=== PATIENT | male | born 1965 | race Caucasian/White ===

== ENCOUNTER 2018-11-03 22:22 | Emergency (ER) | payer OTHER ==
--- OUTSIDE RECORDS SUMMARY | 2018-11-03 22:24 | XMS REPORT ---
:1965 Author [facility] Address [address] [place] [address] [address] [place] [address] Care Team Providers Name Role Phone Unavailable Unavailable Unavailable Problems This patient has no known problems. Allergies, Adverse Reactions, Alerts This patient has no known allergies or adverse reactions. Medications This patient has no known medications.
--- OUTSIDE RECORDS SUMMARY | 2018-11-03 22:24 | XMS REPORT | Summary of Care ---
:1965 Author Organization [facility] Address [address] [place] [id number] Care Team Providers Name Role Phone Jon Figueroa MD Primary Care Provider Reason for Visit Reason Comments Refill Request Encounter Details Date Type Department Care Team Description 10/01/2018 Refill [facility] Family Medicine Jon Figueroa MD Refill Request - [address] [place] [address] [place] [phone] Allergies No Known Allergiesdocumented as of this encounter (statuses as of 10/01/2018) Medications Medication Sig Dispensed Refills Start End Status Date Date blood sugar diagnostic Use as 50 Strip 5 Active (ONETOUCH ULTRA TEST) directed for 7 stripIndications: Type blood glucose 2 diabetes mellitus monitoring with complication, once a day for without long-term ICD code of current use of insulin E11.9 HYDROCHLOROTHIAZIDE TAKE 1 CAPSULE 90 capsule 3 Active 12.5 mg capsule BY MOUTH 9 DAILY. ROSUVASTATIN 10 mg TAKE 1 TABLET 90 tablet 3 Active tablet BY MOUTH 9 DAILY. FARXIGA 10 mg tablet TAKE 1 TABLET 90 tablet 1 Active BY MOUTH 9 DAILY. zolpidem 10 mg Take 1 tablet 90 tablet 1 Active tabletIndications: by mouth at 9 Insomnia, unspecified bedtime as type needed for Insomnia. levothyroxine Take 1 tablet 90 tablet 3 Active (SYNTHROID) 75 mcg by mouth every 9 tabletIndications: morning. Other specified hypothyroidism GLIMEPIRIDE 2 mg TAKE 1 TABLET 90 tablet 3 Active tabletIndications: Type BY MOUTH EVERY 9 2 diabetes mellitus DAY WITH without complication, BREAKFAST without long-term current use of insulin benzonatate (TESSALON Take 1 capsule 20 capsule 0 Active PERLES) 100 mg by mouth 3 9 capsuleIndications: (three) times Acute URI daily. albuterol 90 Inhale 2 Puffs 8.5 g 0 Active mcg/actuation every 6 (six) 9 inhalerIndications: hours as Cough, Wheezing needed for Wheezing. Inhaler,Assist Use as 1 Each 0 Active Devices,Access directed with 9 DeviIndications: Cough, albuterol Wheezing inhaler linagliptin-metformin Take 2 tablets 180 tablet 0 Active (JENTADUETO) 2.5-1,000 by mouth 9 mg Tab daily. LORATADINE 10 mg TAKE 1 TABLET 30 tablet 0 Active tabletIndications: BY MOUTH EVERY 9 Cough, Nasal congestion DAY lisdexamfetamine Take 1 capsule 90 capsule 0 Active (VYVANSE) 60 mg by mouth every 9 capsuleIndications: morning. Attention deficit disorder (ADD) without hyperactivity dulaglutide (TRULICITY) inject 0.5 mL 12 Syringe 1 Active 0.75 mg/0.5 mL PnIj under the skin 9 weekly. TRULICITY 0.75 mg/0.5 INJECT 0.5 ML 12 Syringe 1 Discontinued mL PnIj UNDER THE SKIN 9 019 WEEKLY. documented as of this encounter (statuses as of 10/01/2018) Active Problems Problem Noted Date Hyperlipidemia with target LDL less than 100 05/22/2015 Type 2 diabetes mellitus without complication 05/22/2015 Hypothyroid 05/22/2015 Essential hypertension 05/22/2015 ADD (attention deficit disorder) 05/22/2015 documented as of this encounter (statuses as of 10/01/2018) Social History Tobacco Use Types Packs/Day Years Used Date Never Smoker Smokeless Tobacco: Never Used Alcohol Use Drinks/Week oz/Week Comments Yes occasional Sex Assigned at Date Recorded Not on file Job Start Date Occupation Industry Not on file Not on file Not on file Travel History Travel Start Travel End No recent travel history available. documented as of this encounter Last Filed Vital Signs Not on filedocumented in this encounter Plan of Treatment Date Type Specialty Care Team Description 10/31/2018 Office Visit Family Medicine Jon Figueroa MD [address] [place] [phone] Health Maintenance Due Date Last Done Comments HEPATITIS C (HCV) SCREEN 1965 HgA1C 1966 PNEUMOCOCCAL 0-64 YEARS COMBINED SERIES (1 of 1 - 1969 PPSV23) CREATININE (SERUM) 1973 EYE EXAM 1973 LDL-C 1973 URINE MICROALBUMIN 1973 FOOT EXAM 1981 DTaP,Tdap,and Td Vaccines (1 - Tdap) 1982 COLONOSCOPY 2013 Zoster Recombinant Vaccine (SHINGRIX) (1 of 2) 2013 INFLUENZA VACCINE 11/04/2018 documented as of this encounter Results Not on filedocumented in this encounter Insurance Payer Benefit Plan / Group Subscriber ID Effective Dates Phone Address Type AETNA AETNA HMO [id number] 2014-Present HMO documented as of this encounter
--- OUTSIDE RECORDS SUMMARY | 2018-11-03 22:24 | XMS REPORT | Summary of Care ---
:[address] [facility] Address [address] [place] [address] Care Team Providers Name Role Phone Jon Figueroa MD Primary Care Provider Reason for Visit Reason Comments Refill Request Encounter Details Date Type Department Care Team Description 10/01/2018 Refill [facility] Family Medicine Jon Figueroa MD Refill Request - [address] [place] [address] [place] [phone] Allergies No Known Allergiesdocumented as of this [...] tablet 1 Active BY MOUTH 9 DAILY. TRULICITY 0.75 mg/0.5 INJECT 0.5 ML 12 Syringe 1 Active mL PnIj UNDER THE SKIN 9 WEEKLY. zolpidem 10 mg Take 1 tablet 90 [...] morning. Attention deficit disorder (ADD) without hyperactivity lisdexamfetamine Take 1 capsule 90 capsule 0 Discontinued (VYVANSE) 60 mg by mouth every 9 019 capsuleIndications: morning. Attention deficit disorder (ADD) without hyperactivity documented as of this encounter (statuses as [...] Office Visit Family Medicine Jon Figueroa MD [address] [place] [phone] Health Maintenance Due Date Last Done Comments [...] Results Not on filedocumented in this encounter Visit Diagnoses Diagnosis Attention deficit disorder (ADD) without hyperactivity documented in this encounter Insurance Payer Benefit Plan / Group Subscriber ID Effective Dates Phone Address Type AETNA AETNA O [id number] 2014-Present HMO documented as of this encounter
--- OUTSIDE RECORDS SUMMARY | 2018-11-03 22:24 | XMS REPORT | Summary of Care ---
:1965 Author Organization [facility] Address [address] [place] [address] Care Team Providers Name Role Phone Jon Figueroa MD Primary Care Provider Reason for Visit Reason Comments Refill Request Encounter Details Date Type Department Care Team Description 10/15/2018 Refill [facility] Family Medicine Jon Figueroa MD Refill Request - [address] [place] [address] [place] [phone] Allergies No Known Allergiesdocumented as of this encounter (statuses as of 10/16/2018) Medications Medication Sig Dispensed Refills Start End [...] 3 Active tablet BY MOUTH 9 DAILY. zolpidem 10 mg [...] with 9 DeviIndications: Cough, albuterol Wheezing inhaler LORATADINE 10 mg TAKE 1 TABLET 30 tablet 0 Active tabletIndications: BY MOUTH EVERY 9 Cough, Nasal congestion DAY lisdexamfetamine Take 1 capsule 90 capsule 0 Active (VYVANSE) 60 mg by mouth every 9 capsuleIndications: morning. Attention deficit disorder (ADD) without hyperactivity dulaglutide (TRULICITY) inject 0.5 mL 12 Syringe 1 Active 0.75 mg/0.5 mL PnIj under the skin 9 weekly. dapagliflozin (FARXIGA) Take 1 tablet 90 tablet 0 Active 10 mg tablet by mouth 9 daily. linagliptin-metformin Take 2 tablets 180 tablet 0 Active (JENTADUETO) 2.5-1,000 by mouth 9 mg Tab daily. linagliptin-metformin Take 2 tablets 180 tablet 0 Discontinued (JENTADUETO) 2.5-1,000 by mouth 9 019 mg Tab daily. documented as of this encounter (statuses as of 10/16/2018) Active Problems Problem Noted Date Hyperlipidemia with target LDL less than 100 05/22/2015 Type 2 diabetes mellitus without complication 05/22/2015 Hypothyroid 05/22/2015 Essential hypertension 05/22/2015 ADD (attention deficit disorder) 05/22/2015 documented as of this encounter (statuses as of 10/16/2018) Social History Tobacco Use Types Packs/Day Years [...] Office Visit Family Medicine Jon Figueroa MD [address] [place] [phone] Health Maintenance Due Date Last Done Comments [...] Dates Phone Address Type AETNA AETNA HMO [id number] 2014-Present HMO documented as of this encounter
--- OUTSIDE RECORDS SUMMARY | 2018-11-03 22:24 | XMS REPORT | Summary of Care ---
:1965 Author Organization [facility] Address [address] [place] [address] Care Team Providers Name Role Phone Jon Figueroa MD Primary Care Provider Reason for Visit Reason Comments Refill Request Encounter Details Date Type Department Care Team Description 10/04/2018 Refill [facility] Family Medicine Jon Figueroa MD Refill Request - [address] [place] [address] [place] [phone] Allergies No Known Allergiesdocumented as of this encounter (statuses as of 10/04/2018) Medications Medication Sig Dispensed Refills Start End [...] 10 mg tablet by mouth 9 daily. FARXIGA 10 mg tablet TAKE 1 TABLET 90 tablet 1 Discontinued BY MOUTH 9 019 DAILY. documented as of this encounter (statuses as of 10/04/2018) Active Problems Problem Noted Date Hyperlipidemia with target LDL less than 100 05/22/2015 Type 2 diabetes mellitus without complication 05/22/2015 Hypothyroid 05/22/2015 Essential hypertension 05/22/2015 ADD (attention deficit disorder) 05/22/2015 documented as of this encounter (statuses as of 10/04/2018) Social History Tobacco Use Types Packs/Day Years [...] Office Visit Family Medicine Jon Figueroa MD [address] [place] [phone] Health Maintenance Due Date Last Done Comments [...] Dates Phone Address Type AETNA AETNA HMO [id number] 2014-Present HMO documented as of this encounter
[2018-11-03] MEDS ORDERED: LIDOCAINE 1% 20 ML MDV ONE (23:30)
[2018-11-03] MEDS ORDERED: TETANUS & DIPHTHERIA TOX,ADULT 0.5 ML VIAL ONE (23:30)
[2018-11-04] MEDS ORDERED: AMOX/K CLAV 875 MG TAB ONE (00:02)
--- NOTE | 2018-11-04 00:02 | ER ---
Nurse's Notes [facility] Name: Abdoulaye Guerrero Age: 53 yrs Sex: Male : 1965 Arrival Date: 11/03/2018 Time: 22:24 Bed 24 Private MD: Jon Figueroa S Diagnosis: Bitten by dog;Laceration without foreign body of left hand Presentation: 11/03 22:35 Presenting complaint: Patient states: that he was bitten on left hand by his own dog fc today when he got to close to him while the dog was eating. He cleaned it with peroxide and attempted to steri strip it with no success, area continues to bleed. Transition of care: patient was not received from another setting of care. Onset of symptoms was November 03, 2018 at 17:00. Risk Assessment: Do you want to hurt yourself or someone else? Patient reports no desire to harm self or others. Initial Sepsis Screen: Does the patient meet any 2 criteria? No. Patient's initial sepsis screen is negative. Does the patient have a suspected source of infection? No. Patient's initial sepsis screen is negative. Care prior to arrival: Bleeding of injury controlled. Injury dressed. 22:35 Method Of Arrival: Ambulatory fc 22:35 Acuity: NITIN 4 fc Triage Assessment: 22:35 Bite description: bite sustained to dorsum of left hand is from animal, was sustained fc 4-6 hours ago. by a dog, animal information: vaccination(s) is current. General: Appears comfortable, slender, well groomed, Behavior is calm, cooperative, appropriate for age. Pain: Complains of pain in dorsum of left hand Pain currently is 4 out of 10 on a pain scale. Quality of pain is described as aching, Pain began 6 hrs ago Is continuous, Aggravated by increased activity. EENT: No deficits noted. Neuro: Level of Consciousness is awake, alert, obeys commands, Oriented to person, place, time, situation, Appropriate for age. Cardiovascular: No deficits noted. Respiratory: No deficits noted. GI: No deficits noted. : No deficits noted. Derm: Skin is pink, warm \T\ dry. Musculoskeletal: Circulation, motion, and sensation intact. Capillary refill < 3 seconds, Range of motion: intact in all extremities. Injury Description: Bite sustained to dorsum of left hand caused by a dog, is from animal, was sustained 6-12 hours ago. Historical: - Allergies: 11/04 00:15 No Known Allergies; fc - Home Meds: 00:15 Trulicity 0.75 mg/0.5 mL subcutaneous pnij 0.5 mL once wkly [Active]; fc hydrochlorothiazide 12.5 mg Oral cap 1 cap once daily [Active]; levothyroxine 50 mcg tab 1 tab once daily [Active]; Vyvanse 60 mg oral cap 1 cap once daily [Active]; Crestor 10 mg oral tab 1 tab nightly [Active]; Farxiga 10 mg oral tab 1 tab once daily [Active]; Jentadueto 2.5-1,000 mg oral tab 1 tab 2 times per day [Active]; - PMHx: 00:15 Diabetes - NIDDM; Hypothyroidism; ADD/ADHD; High Cholesterol; Kidney stones; fc - PSHx: 00:15 shoulder surg; foot surg; fc - Immunization history:: Last tetanus immunization: unknown. - Social history:: Smoking status: Patient/guardian denies using tobacco, Patient uses alcohol, occasionally. Patient/guardian denies using street drugs. - Ebola Screening: : Patient negative for fever greater than or equal to 101.5 degrees Fahrenheit, and additional compatible Ebola Virus Disease symptoms Patient denies exposure to infectious person Patient denies travel to an Ebola-affected area in the 21 days before illness onset. Screenin/31 22:35 Abuse screen: Denies threats or abuse. Nutritional screening: No deficits noted. fc Tuberculosis screening: No symptoms or risk factors identified. Fall Risk None identified. Assessment: 22:52 Reassessment: No changes from previously documented assessment. Patient and/or family fc updated on plan of care and expected duration. Pain level reassessed. Patient is alert, oriented x 3, equal unlabored respirations, skin warm/dry/pink. see triage assessment. Derm: Skin dog bite to left hand. 23:52 Reassessment: Patient and/or family updated on plan of care and expected duration. Pain fc level reassessed. Ar AYALA at bedside to suture wound. Vital Signs: 22:35 BP 131 / 80; Pulse 88; Resp 18; Temp 98.3(O); Pulse Ox 97% on R/A; Weight 81.65 kg (R); fc Height 5 ft. 9 in. (175.26 cm) (R); Pain 4/10; 22:35 Body Mass Index 26.58 (81.65 kg, 175.26 cm) ED Course: 22:24 Patient arrived in ED. mr 22:24 Jon Figueroa MD is Private Physician. mr 22:35 Arm band placed on Patient placed in an exam room, on a stretcher. 22:35 Patient has correct armband on for positive identification. Bed in low position. Call light in reach. 22:35 No provider procedures requiring assistance completed. 22:47 Triage completed. 23:00 Ar Medina NP is PHCP. pm1 23:00 Frankie Locke MD is Attending Physician. pm1 23:10 Wound care: to puncture located on left hand was cleaned with Hibiclens, soaked in lt1 normal saline solution, irrigated with normal saline. 23:29 X-ray completed. Portable x-ray completed in exam room. Patient tolerated procedure kw well. 23:31 Hand Left 3 View XRAY In Process Unspecified. EDMS 23:52 Patient did not have IV access during this emergency room visit. 11/04 00:00 Abel Olvera MD is Referral Physician. pm1 00:00 Wound care: to Laceration and puncture located on dorsum of left hand was dressed with Neosporin, 4X4s, ivette wrap. Administered Medications: 11/03 23:33 Drug: Tetanus-Diphtheria Toxoid Adult 0.5 ml {Powder Worker: [employer]. Exp: 07/17/2020. Lot #: [id number]. } Route: IM; Site: left deltoid; 11/04 00:10 Follow up: Response: No adverse reaction; No change in condition 11/03 23:53 Drug: Lidocaine (1 %) 5 ml {Note: per Ar AYALA to suture wound.} Volume: 5 ml; Route: fc Infiltration; 11/04 00:10 Follow up: Response: No adverse reaction; No change in condition 00:00 Drug: Augmentin 875 mg Route: PO; 00:10 Follow up: Response: No adverse reaction; No change in condition Outcome: 00:01 Discharge ordered by MD. pm1 00:16 Discharged to home ambulatory. 00:16 Condition: good 00:16 Discharge instructions given to patient, Instructed on discharge instructions, follow up and referral plans. medication usage, wound care, Demonstrated understanding of instructions, follow-up care, medications, wound care, Prescriptions given X 1. 00:17 Patient left the ED. Signatures: Dispatcher [employer] AMAN DiazAlpa west Felicia, RN RN Racquel Tucker Patrick, NP STATISTICS MANAGER pm1 Anastasia Kaiser 1
--- NOTE | 2018-11-04 00:03 | EDPHYS ---
Physician Documentation [facility] Name: Abdoulaye Guerrero Age: 53 yrs Sex: Male : 1965 Arrival Date: 11/03/2018 Time: 22:24 Bed 24 Private MD: Jon Figueroa S ED Physician Frankie Locke HPI: 11/03 23:35 This 53 yrs old Male presents to ER via Ambulatory with complaints of Dog pm1 Bite. 23:35 The patient was bitten on the dorsum of left hand, by a dog, touching dog while he was pm1 eating, at home. Onset: The symptoms/episode began/occurred today. Animal information: The animal was reported to appear healthy. Animal's vaccinations are up to date. patient's dog. Secondary to the bite the patient reports multiple lacerations. Associated signs and symptoms: The patient has no apparent associated signs or symptoms, Pertinent negatives: numbness distal to wound, suspected foreign body, swelling at site. The patient has not experienced similar symptoms in the past. The patient has not recently seen a physician. Patient came to the ER because he could not stop the bleeding with butterfly strips. Historical: - Allergies: 11/04 00:15 No Known Allergies; fc - Home Meds: 00:15 Trulicity 0.75 mg/0.5 mL subcutaneous pnij 0.5 mL once wkly [Active]; fc hydrochlorothiazide 12.5 mg Oral cap 1 cap once daily [Active]; levothyroxine 50 mcg tab 1 tab once daily [Active]; Vyvanse 60 mg oral cap 1 cap once daily [Active]; Crestor 10 mg oral tab 1 tab nightly [Active]; Farxiga 10 mg oral tab 1 tab once daily [Active]; Jentadueto 2.5-1,000 mg oral tab 1 tab 2 times per day [Active]; - PMHx: 00:15 Diabetes - NIDDM; Hypothyroidism; ADD/ADHD; High Cholesterol; Kidney stones; fc - PSHx: 00:15 shoulder surg; foot surg; fc - Immunization history:: Last tetanus immunization: unknown. - Social history:: Smoking status: Patient/guardian denies using tobacco, Patient uses alcohol, occasionally. Patient/guardian denies using street drugs. - Ebola Screening: : Patient negative for fever greater than or equal to 101.5 degrees Fahrenheit, and additional compatible Ebola Virus Disease symptoms Patient denies exposure to infectious person Patient denies travel to an Ebola-affected area in the 21 days before illness onset. ROS: 11/03 23:35 Constitutional: Negative for fever, chills, and weight loss, Eyes: Negative for injury, pm1 pain, redness, and discharge, ENT: Negative for injury, pain, and discharge, Neck: Negative for injury, pain, and swelling, Cardiovascular: Negative for chest pain, palpitations, and edema, Respiratory: Negative for shortness of breath, cough, wheezing, and pleuritic chest pain, Abdomen/GI: Negative for abdominal pain, nausea, vomiting, diarrhea, and constipation, Back: Negative for injury and pain. Neuro: Negative for headache, weakness, numbness, tingling, and seizure. MS/extremity: Positive for laceration, of the dorsum of left hand. Skin: Positive for laceration(s), of the dorsum of left hand. Exam: 23:35 Constitutional: This is a well developed, well nourished patient who is awake, alert, pm1 and in no acute distress. Head/Face: Normocephalic, atraumatic. Neck: Trachea midline, no thyromegaly or masses palpated, and no cervical lymphadenopathy. Supple, full range of motion without nuchal rigidity, or vertebral point tenderness. No Meningismus. Chest/axilla: Normal chest wall appearance and motion. Nontender with no deformity. No lesions are appreciated. Cardiovascular: Regular rate and rhythm with a normal S1 and S2. No gallops, murmurs, or rubs. Normal PMI, no JVD. No pulse deficits. Respiratory: Lungs have equal breath sounds bilaterally, clear to auscultation and percussion. No rales, rhonchi or wheezes noted. No increased work of breathing, no retractions or nasal flaring. Back: No spinal tenderness. No costovertebral tenderness. Full range of motion. 23:35 Musculoskeletal/extremity: Extremities: grossly normal except: noted in the dorsum of left hand: laceration. 23:35 Skin: Appearance: normal except for affected area, injury, laceration(s), the wound is approximately 3 cm(s), of the dorsum of left hand and webbing between 3rd and 4th fingers. 23:35 Neuro: Orientation: is normal, Motor: is normal, moves all fours. Vital Signs: 22:35 BP 131 / 80; Pulse 88; Resp 18; Temp 98.3(O); Pulse Ox 97% on R/A; Weight 81.65 kg (R); fc Height 5 ft. 9 in. (175.26 cm) (R); Pain 4/10; 22:35 Body Mass Index 26.58 (81.65 kg, 175.26 cm) fc Laceration: 23:59 Wound Repair of 3cm ( 1.2in ) subcutaneous laceration to dorsum of left hand. pm1 Irregularly shaped.. Distal neuro/vascular/tendon intact. Anesthesia: Local anesthetic administered with 3 mls of 1% lidocaine. Wound prep: Extensive cleansing with hibiclenz by customer data technician, Wound irrigation with saline by customer data technician, Wound explored extensively, Copious irrigation. Skin closed with 2 4-0 Prolene using simple sutures and sterile technique. Dressed with 4x4's. Patient tolerated well. MDM: 23:00 Patient medically screened. pm1 23:59 Data reviewed: vital signs. Data interpreted: Pulse oximetry: on room air is 97 %. pm1 Interpretation: normal. Counseling: I had a detailed discussion with the patient and/or guardian regarding: the historical points, exam findings, and any diagnostic results supporting the discharge/admit diagnosis, radiology results, the need for outpatient follow up, a hand specialist, to return to the emergency department if symptoms worsen or persist or if there are any questions or concerns that arise at home. 11/03 23:08 Order name: Hand Left 3 View XRAY pm1 11/03 23:08 Order name: Prolene, Sutures; Complete Time: 23:54 pm1 11/03 23:08 Order name: Dressing - Wound; Complete Time: 23:54 pm1 11/03 23:08 Order name: Gloves, Sterile; Complete Time: 23:16 pm1 11/03 23:08 Order name: Setup Suture Tray; Complete Time: 23:16 pm1 Administered Medications: 23:33 Drug: Tetanus-Diphtheria Toxoid Adult 0.5 ml {Fish Net Maker: [employer]. Exp: 07/17/2020. Lot #: [id number]. } Route: IM; Site: left deltoid; 11/04 00:10 Follow up: Response: No adverse reaction; No change in condition 11/03 23:53 Drug: Lidocaine (1 %) 5 ml {Note: per Ar [employer] to suture wound.} Volume: 5 ml; Route: fc Infiltration; 11/04 00:10 Follow up: Response: No adverse reaction; No change in condition 00:00 Drug: Augmentin 875 mg Route: PO; 00:10 Follow up: Response: No adverse reaction; No change in condition Disposition: 00:41 Co-signature as Attending Physician, Frankie Locke MD. rn Disposition: 11/04/18 00:01 Discharged to Home. Impression: Bitten by dog, Laceration without foreign body of left hand. - Condition is Stable. - Discharge Instructions: Laceration Care, Adult, Animal Bite. - Prescriptions for Augmentin 875- 125 mg Oral Tablet - take 1 tablet by ORAL route every 12 hours for 10 days; 20 tablet. - Medication Reconciliation Form, Thank You Letter, Antibiotic Education, Prescription Opioid Use form. - Follow up: Emergency Department; When: As needed; Reason: Worsening of condition. Follow up: Abel Olvera MD; When: 2 - 3 days; Reason: Wound Recheck, Recheck today's complaints, Continuance of care, Re-evaluation by your physician. - Problem is new. - Symptoms have improved. Signatures: Dispatcher [employer] Meghann Cardenas, RN CHAR Frankie Locke MD MD rn Marinas, Patrick, LUCY [employer] pm1 Corrections: (The following items were deleted from the chart) 00:17 00:01 11/04/2018 00:01 Discharged to Home. Impression: Bitten by dog; Laceration fc without foreign body of left hand. Condition is Stable. Forms are Medication Reconciliation Form, Thank You Letter, Antibiotic Education, Prescription Opioid Use. Follow up: Emergency Department; When: As needed; Reason: Worsening of condition. Follow up: Abel Olvera; When: 2 - 3 days; Reason: Wound Recheck, Recheck today's complaints, Continuance of care, Re-evaluation by your physician. Problem is new. Symptoms have improved. pm1
--- NOTE | 2018-11-04 11:06 | RAD REPORT ---
EXAM DESCRIPTION: RAD -Hand Left 3 View - 11/03/2018 11:30 pm CLINICAL HISTORY: Left hand pain status post injury FINDINGS: No fracture or dislocation is seen. A 7 millimeter well-circumscribed lucency within the scaphoid probably represents cyst
== END 2018-11-04 00:17 | disposition home or self-care (01) ==
LOC: ER 22:22
PROC: 0JQK0ZZ Repair Left Hand Subcutaneous Tissue and Fascia, Open Approach (ICD-10-PCS; principal; 2018-11-04)
DX: S61.412A Laceration without foreign body of left hand, initial encounter (principal); W54.0XXA Bitten by dog, initial encounter; Y93.9 Activity, unspecified; Y92.9 Unspecified place or not applicable; Z23 Encounter for immunization
CPT/HCPCS: 90471; 90714; 99284